=== PATIENT | male | born 1985 | race African-American/Black ===

== ENCOUNTER 2017-07-15 19:54 | Emergency (ER) | payer SELFPAY ==
[~2017-07-15] VITALS: Ht 193 cm; Wt 140.9 kg
[~2017-07-15 19:54] MED LIST: LORTAB 5-325 M1 EACH PO; NAPROXEN500 MG PO; PEN-VEE K,VEET500 MG PO; TRAMADOL HCL50 MG PO
[2017-07-15 20:02] VITALS: BP 141/77
[2017-07-15] MEDS ORDERED: PERCOCET 5/31 TABLET PO (21:29)
[2017-07-15] MEDS ORDERED: MOTRIN800 MG PO (21:29)
== END 2017-07-15 22:11 | disposition home or self-care (01) ==
LOC: EME 19:54
DX: S93.401A Sprain of unspecified ligament of right ankle, initial encounter (principal); S90.01XA Contusion of right ankle, initial encounter; X50.1XXA Overexertion from prolonged static or awkward postures, initial encounter; Y93.61 Activity, american tackle football; F17.200 Nicotine dependence, unspecified, uncomplicated
CPT/HCPCS: 73610; 99281; 99284